=== PATIENT | female | born 1960 | race Two or more races ===

== ENCOUNTER 2020-05-22 07:30 | Inpatient (IN) | payer OTHER ==
[~2020-05-22] VITALS: Ht 154.9 cm; Wt 72.6 kg
[2020-05-22] MEDS ORDERED: LANTUS (08:59)
[2020-05-22] MEDS ORDERED: HUMLOG (09:00)
[2020-05-22] MEDS ORDERED: ATORVASTATIN CA10 MG PO (09:01)
[2020-05-22] MEDS ORDERED: LEVOTHYR PO (09:02)
[2020-05-22] MEDS ORDERED: ANASTROZOLE1 MG PO (09:03)
[2020-05-29] MEDS ORDERED: METOPROLOL SUCC25 MG (08:01)
[2020-05-29] MEDS ORDERED: SEMGLEE100 UNIT/1 (08:02)
[2020-05-29] MEDS ORDERED: LEVOTHYROXINE100 MCG (08:02)
[2020-05-29] MEDS ORDERED: HUMALOG100 UNIT/2 (08:03)
[2020-05-29] MEDS ORDERED: LOSARTAN POTASS50 MG (08:03)
[2020-06-01] MEDS ORDERED: DUI500 PO (08:53)
[2020-06-01] MEDS ORDERED: ELIQUIS5 M1 PO (08:53)
[2020-06-01] MEDS ORDERED: PERCOCET 5-3251 EACH PO (08:53)
== END 2020-06-01 11:48 | DRG 470 ==
LOC: O/R 05-29 06:00 → SURH 05-29 06:00
PROVIDERS: ADMIT Orthopaedic Surgery; ATTEND Orthopaedic Surgery
PROC: 0QPH04Z Removal of Internal Fixation Device from Left Tibia, Open Approach (ICD-10-PCS; 2020-05-29)
PROC: 0SRD0J9 Replacement of Left Knee Joint with Synthetic Substitute, Cemented, Open Approach (ICD-10-PCS; principal; 2020-05-29 07:00)
PROC: 30233N1 Transfusion of Nonautologous Red Blood Cells into Peripheral Vein, Percutaneous Approach (ICD-10-PCS; 2020-05-30)
DX: M17.12 Unilateral primary osteoarthritis, left knee (principal); D62 Acute posthemorrhagic anemia; M81.0 Age-related osteoporosis without current pathological fracture; S82.292D Other fracture of shaft of left tibia, subsequent encounter for closed fracture with routine healing; E03.9 Hypothyroidism, unspecified; E10.9 Type 1 diabetes mellitus without complications; Z79.4 Long term (current) use of insulin; Z20.828 Contact with and (suspected) exposure to other viral communicable diseases; I10 Essential (primary) hypertension

== ENCOUNTER 2021-03-12 06:30 | Day surgery (SDC) | payer OTHER ==
[~2021-03-12 06:30] MED LIST: ANASTROZOLE1 MG PO; ATORVASTATIN CA10 MG PO; DUI500 PO; ELIQUIS5 M1 PO; HUMALOG100 UNIT/2; HUMLOG; LANTUS; LEVO-T88 MCG PO; LEVOTHYR PO; LEVOTHYROXINE100 MCG; LOSARTAN POTASS50 MG; METOPROLOL SUCC25 MG; PERCOCET 5-3251 EACH PO; SEMGLEE100 UNIT/1
[2021-03-12] MEDS ORDERED: PERCOCET 5-3251 EACH PO (13:16)
== END 2021-03-12 15:35 | disposition home or self-care (01) ==
LOC: CIR.AMB 06:30
PROVIDERS: ATTEND Orthopaedic Surgery
DX: M24.562 Contracture, left knee (principal); M25.462 Effusion, left knee; Z20.822 Contact with and (suspected) exposure to COVID-19